=== PATIENT | female | born 1970 | race Caucasian/White ===

== ENCOUNTER 2020-12-15 19:20 | Emergency (ER) | payer OTHER ==
[~2020-12-15 19:20] MED LIST: LOPRESSOR 25 MG25 MG PO; VASOTEC 10 MG T10 MG PO
== END 2020-12-15 23:16 | disposition left against medical advice (07) ==
LOC: ER1 19:20
DX: Z53.21 Procedure and treatment not carried out due to patient leaving prior to being seen by health care provider (principal)